=== PATIENT | male | born 1980 | race Caucasian/White ===

== ENCOUNTER 2022-07-26 16:26 | Emergency (ER) | payer OTHER, SELFPAY ==
[2022-07-26 16:40] VITALS: BP 117/71; PULSE 83; RESP 16; TEMP 36.4; O2SAT 99
--- NOTE | 2022-07-26 16:48 | ED.NECK ---
HPI - Neck Pain/Injury General Chief Complaint: Neck Pain/Injury Stated Complaint: Neck Pain Time Seen by Provider: 07/26/22 16:48 Source: patient Mode of arrival: ambulatory Limitations: no limitations History of Present Illness HPI Narrative: Charles is a 41-year-old male patient presenting to clinic today with complaints of neck pain since Sunday. He reports no injury but woke up Sunday with left-sided neck pain and pain/numbness radiating down his left arm. States he went to the chiropractor and the chiropractor did x-rays and he has malalignment of his cervical spine. The chiropractor is trying to adjust to however he suggest he come here for steroids and muscle relaxer. Currently rates his pain 02/15. Related Data Allergies Allergy/AdvReac Type Severity Reaction Status Date / Time No Known Allergies Allergy Verified 07/26/22 17:06 Review of Systems Review of Systems: Pertinent positives per HPI. Patient denies any fever, chills, rash, headache, visual changes, dizziness, cough, runny nose, sore throat, shortness of breath, chest pain, palpitations, nausea, vomiting, diarrhea, constipation, abdominal pain, or any urinary issues. AUDREY Comments At the time of my signature, I reviewed and agree with the nursing past medical, surgical, social, and family history. There is no relevant family history pertinent to the patient complaint. Exam Narrative: General: Well-developed, well nourished, in no apparent distress Head: Normocephalic, atraumatic. Cardio: Regular rate and rhythm, s1 and s2 normal, no murmur appreciated. Resp: Clear to auscultation bilaterally, no rhonchi, rales, wheezing or rubs. Musculoskeletal: No deformity,tender to palpation over the base of the cervical spine and trapezius muscle, mild pain reproduced with bringing left arm up against resistance, pain also reproduced when lifting head to normal anatomical position, grossly normal range of motion otherwise, muscle strength strong and equal, bilateral floral specialist strength strong and equal, peripheral pulse strong, no edema, no cyanosis, normal gait and station Course Course Emergency Course: Portions of this record may have been created with voice recognition software. Level of Care: Express Care Visit Vital Signs Vital signs: Vital Signs Temperature 36.4 C L 07/26/22 16:40 Pulse Rate 83 07/26/22 16:40 Respiratory Rate 16 01/18/23 16:40 Blood Pressure 117/71 07/26/22 16:40 Pulse Oximetry 99 07/26/22 16:40 Temperature 36.4 C L 07/26/22 16:40 Pulse Rate 83 07/26/22 16:40 Respiratory Rate 16 07/26/22 16:40 Blood Pressure 117/71 07/26/22 16:40 Pulse Oximetry 99 07/26/22 16:40 Vital signs reviewed MDM - Neck Pain/Injury MDM Narrative Medical decision making narrative: At the time of visit patient is resting comfortably on exam table. I suspect the patient has cervical radiculopathy with of cervical strain. Will send in prescription for Flexeril and prednisone. Supportive measures were discussed with the patient he voiced understanding discharge instructions and agrees to treatment plan. Differential Diagnosis Differential diagnosis: Likely disc disorder of cervical region, cervical radiculopathy and strain of neck muscle Discharge Plan Discharge Clinical Impression: Cervical radiculopathy Strain of neck muscle Qualifiers: Encounter type: initial encounter Qualified Code(s): S16.1XXA - Strain of muscle, fascia and tendon at neck level, initial encounter Patient Disposition: Home, Self-Care Condition: Stable Instructions: Antibiotic Form, Cervical Strain (ED), Cervical Radiculopathy (ED), Neck Pain (ED) Additional Instructions: Take any prescription medication only as prescribed-prednisone and Flexeril Be mindful of sedation precautions given to you if taking a muscle relaxer. May use heat or ice to the affected area Consider massage or chiropractor adjustment if this was discussed with provider
== END 2022-07-26 17:21 | disposition home or self-care (01) ==
PROVIDERS: Emergency Provider Nurse Practitioner Family
DX: M54.12 Radiculopathy, cervical region (principal); S16.1XXA Strain of muscle, fascia and tendon at neck level, initial encounter; X58.XXXA Exposure to other specified factors, initial encounter
CPT/HCPCS: 99203; G0463